=== PATIENT | female | born 1935 | race Caucasian/White ===

== ENCOUNTER → 2024-08-25 09:38 | Outpatient (REF) | payer OTHER, SELFPAY ==
[2024-08-25 10:22] LABS: % Basophils 0.8 % (0-2); % Eosinophils 4.1 % (0-6); % Immature Granulocytes 0.2 % (0-0.5); % Lymphocytes 37.7 % (20.5-51.1); % Neutrophils 49.2 % (42.2-75.2); Absolute Eosinophils 0.2 10^3/uL (0-0.7); Absolute Lymphocytes 1.8 10^3/uL (1.2-3.4); Absolute Monocytes 0.4 10^3/uL (0.1-0.6); Absolute Neutrophils 2.4 10^3/uL (1.4-6.5); Mean Corp Hgb Conc. 34.2 g/dL (33.0-37.0); Mean Corpuscular Hgb 30.6 pg (27.0-31.0); Mean Corpuscular Volume 89.4 fL (81.0-99.0); Mean Platelet Volume 10.8 fL (7.4-10.4); Nucleated Red Blood Cells % 0 %; Platelet Count 226 10^3/uL (130-400); Red Blood Cell Count 4.25 10^6/uL (4.20-5.40); Red Cell Dist. Width 12.4 % (11.5-14.5); White Blood Cell Count 4.9 10^3/uL (4.8-10.8)
[2024-08-25 10:33] LABS: ALT (SGPT) 14 U/L (0-35); AST (SGOT) 18 U/L (14-36); Albumin 4.3 g/dl (3.5-5.0); Alkaline Phosphatase 47 U/L (38-126); Blood Urea Nitrogen 13 mg/dl (7-17); Calcium 9.2 mg/dl (8.4-10.2); Carbon Dioxide 25 mmol/L (22-30); Chloride 107 mmol/L (98-107); Glucose 114 mg/dl (70-99); Potassium 4.1 mmol/L (3.5-5.1); Sodium 142 mmol/L (135-145); Total Bilirubin 0.7 mg/dl (0.2-1.3); Total Protein 7.1 g/dl (6.3-8.2); eGFR > 60.00
[2024-08-25 10:48] LABS: Free T4 1.84 ng/dl (0.78-2.19)
== END ==
LOC: OLABWIL 09:38
PROVIDERS: ATTENDING PHYSICIAN Family Medicine
DX: R73.01 Impaired fasting glucose (principal); E03.9 Hypothyroidism, unspecified; D72.819 Decreased white blood cell count, unspecified
CPT/HCPCS: 36415; 80053; 84439; 84443; 85025

== ENCOUNTER 2025-02-13 17:48 | Emergency (ER) | payer OTHER, SELFPAY ==
[2025-02-13 17:49] VITALS: BP 210/103
--- NOTE | 2025-02-13 19:40 | ED.GENMED ---
History of Present Illness
General
Chief Complaint: Fall
Source: patient, family, ambulance crew and [facility]
Exam Limitations: none
Time Seen by Provider: 02/13/25 19:27
Nursing documentation reviewed up to this point in time: agreed with
History of Present Illness
History of Present Illness:
89-year-old female presenting to the emergency department today after a trip and fall at her nursing facility she claims that she tripped over a transition on the floor hitting her left forehead and left hand. Denies loss of consciousness otherwise
feels well at this point. Denies being on any anticoagulants. She is unsure when her last tetanus shot was. No neck pain back pain abdominal pain or lower extremity she was able to stand up at the scene.
Past History
Social History
Tobacco: Non-smoker
Alcohol: Occasional
Drug: None
Personal:
Living: with family
Review of Systems
Review of Systems
Allergies reviewed?: Yes
All Other Systems: ROS reviewed and negative except as documented in HPI and ROS
Phy Exam
Physical Exam
Physical Exam:
GENERAL: Alert , in no apparent distress
EYE: pupils equal and reactive
NECK: Supple, no significant adenopathy.
ENT: o/p clr, mmm.
CARDIAC: Regular rate and rhythm .
LUNGS: Clear breath sounds bilaterally, no acute respiratory distress, no wheezes/rales/rhonchi
ABDOMEN: Soft, without focal tenderness, no r/g, no cvat
NEUROLOGICAL: Alert and oriented, no focal neuro deficits
SKIN: Warm and dry, skin intact.
MUSCULOSKELETAL: No edema, well perfused.
PSYCH: Normal and appropriate interaction.
Course
Orders/Labs/Results
Orders:
Orders
02/13/25 19:37
CT Head W/o Iv Contrast Urgent
Comment:
Reason For Exam: fall hit left forehead
CR Hand - Left Min 3 Views Urgent
Reason For Exam: fall hit left hand at 2nd MCP
02/13/25 20:26
Lidocaine/Epinephrine/Tetracai [Let Topical Anesthetic Gel] 3 ml TOPICAL NOW STA
Vital Signs
Initial and Last Documented VS:
Initial Vital Signs
Temp Pulse Resp BP Pulse Ox
97.4 F 68 16 210/103 95
02/13/25 17:49 02/13/25 17:49 02/13/25 17:49 02/13/25 17:49 02/13/25 17:49
Last Documented Vital Signs
Temp Pulse Resp BP Pulse Ox
97.4 F 68 16 158/61 95
02/13/25 17:49 02/13/25 17:49 02/13/25 17:49 02/13/25 22:00 02/13/25 19:42
MDM/Problems Addressed
MDM/Problems Addressed:
89-year-old female presenting to the emergency department today with concerns of a mechanical fall prior to arrival. She hit her left forehead and left hand. No loss of consciousness. Patient well-appearing here superficial abrasion to left
forehead. Let was put in place and then it was closed with Dermabond. Otherwise was given updated tetanus shot. CT scan without emergent findings x-ray without signs of fracture stable for discharge. Return precautions given.
*Pulse Oximetry
SaO2: 95
Oxygen Mode of Delivery: Room air
Patient hypoxic: no (95)
*Critical Care Note
Total Time (30-74mins, 75-104mins- exclusive of procedures): Not Applicable
ED Attending Note
-
Portions of this chart may have been created with voice recognition software.� Occasional wrong word or��sound alike� substitutions may have occurred due to the inherent limitations of voice recognition software.
Discharge Plan
Departure
Patient Disposition: Home (Routine Discharge)
Date of Disposition: 02/13/25
Time of Disposition: 22:16
Patient with high blood pressure during this ER visit?: No
Condition: Good
Covid-19: Not Applicable
Discharge Problem:
Abrasion of forehead, Contusion of left hand
Instructions: Laceration Repair With Glue (DC), Contusion (DC)
Prescriptions:
No Action
metoprolol succinate 50 mg Tablet Extended Release 24 Hr
50 mg PO BID
simvastatin 20 mg Tablet
20 mg PO DAILY
levothyroxine 100 mcg Capsule
100 mcg PO DAILY
Referrals:
UNKNOWN - PT DOES,NOT KNOW [Family Provider]
Activity Restrictions/Additional Instructions:
You came to the emergency department today after a fall. Here you have a reassuring assessment. Return for any worsening, new or concerning symptoms.
Interventions
Interventions:
*Risk Screen - Suicide Last Done: 02/13/25 17:49
*General Assessment Last Done: 02/13/25 19:43
*Neglect/Abuse Screening Last Done: 02/13/25 17:49
*ED- Fall Risk Assessment Last Done: 02/13/25 21:00
*ED COVID-19 Vaccine History Last Done: 02/13/25 19:42
*ED Influenza Vaccine History Last Done: 02/13/25 19:42
ED-Musculoskeletal Assessment Last Done: 02/13/25 19:54
ED- Neurological Assessment Last Done: 02/13/25 19:54
ED-Skin Assessment Last Done: 02/13/25 19:54
Discharge Date and Time
Print Language: LAO
[2025-02-13 20:00] VITALS: BP 199/73
[2025-02-13 20:59] VITALS: BMI 29.5
[2025-02-13 21:00] VITALS: BP 191/72
[2025-02-13] MEDS: LET TOPICAL ANESTHETIC GEL 3 ML TOPICAL (21:05)
[2025-02-13 21:30] VITALS: BP 175/100
[2025-02-13 22:00] VITALS: BP 158/61
[2025-02-13 22:30] VITALS: BP 157/70
[2025-02-13] MEDS: ADACEL 0.5 ML IM (22:33)
== END 2025-02-13 22:41 | disposition home or self-care (01) ==
LOC: EMR 17:48
PROVIDERS: EMERGENCY PHYSICIAN Emergency Medicine
DX: S00.81XA Abrasion of other part of head, initial encounter (principal); S60.222A Contusion of left hand, initial encounter; Z23 Encounter for immunization; W01.0XXA Fall on same level from slipping, tripping and stumbling without subsequent striking against object, initial encounter; Y92.099 Unspecified place in other non-institutional residence as the place of occurrence of the external cause
CPT/HCPCS: 99284; 12011; 90471; 70450; 73130; 90715